=== PATIENT | male | born 1980 | race Caucasian/White ===

== ENCOUNTER 2023-05-01 07:48 | Emergency (ER) | payer BC ==
[2023-05-01] MEDS ORDERED: Diphtheria/Tetanus Toxoids,Adult (Td) 0.5 ML SDV IM ONE (08:09)
[2023-05-01] MEDS ORDERED: Lidocaine 1% 20 ML MDV INJECT ONE (08:10)
== END 2023-05-01 11:02 | disposition home or self-care (01) ==
LOC: JD.ED 07:48
DX: S62.662A Nondisplaced fracture of distal phalanx of right middle finger, initial encounter for closed fracture (principal); S62.644A Nondisplaced fracture of proximal phalanx of right ring finger, initial encounter for closed fracture; Z23 Encounter for immunization; Z86.16 Personal history of COVID-19; W23.0XXA Caught, crushed, jammed, or pinched between moving objects, initial encounter
CPT/HCPCS: 11740; 73120-26-RT; 73120-RT; 90471; 90714; 99283-25; J3490